=== PATIENT | male | born 1995 | race Caucasian/White ===

== ENCOUNTER 2021-10-18 17:09 | Outpatient (CLI) | payer OTHER ==
--- NOTE | 2021-10-19 09:14 | XRAY Report ---
PROCEDURE: Knee 2 View LT INDICATIONS: SPRAIN OF L KNEE TECHNIQUE: 2 views of the left knee(s) were acquired. COMPARISON: None. FINDINGS: Bones: No fractures or dislocations. No suspicious bony lesions. Soft tissues: There is small to moderate suprapatellar joint effusion. No suspicious soft tissue mj cifications. IMPRESSION: Small to moderate joint effusion. No acute fracture or dislocation. Reviewed by: Sridhar Curry MD on 10/19/2021 9:12 AM PDT Approved by: Sridhar Curry MD on 10/19/2021 9:12 AM PDT Station ID: [id number]
== END 2021-10-18 23:59 | disposition home or self-care (01) ==
LOC: DI.N 17:09
PROVIDERS: ATTEND Nurse Practitioner
DX: S83.92XA Sprain of unspecified site of left knee, initial encounter (principal); M25.462 Effusion, left knee

== ENCOUNTER 2022-06-18 12:29 | Outpatient (CLI) | payer OTHER ==
--- NOTE | 2022-06-18 17:35 | XRAY Report ---
PROCEDURE: Chest 2 View X-Ray INDICATIONS: WHEEZING TECHNIQUE: 2 views of the chest were acquired. COMPARISON: None. FINDINGS: Surgical changes and devices: None. Lungs and pleura: No pleural effusions or pneumothorax. Lungs are clear. Mediastinum: Mediastinal contours are normal. Heart size is normal. Bones and chest wall: No suspicious bony abnormalities. Soft tissues appear unremarkable. IMPRESSION: Clear lungs, without infiltrates. Reviewed by: Nate Cates MD on 06/18/2022 4:34 PM [facility] Approved by: Nate Cates MD on 06/18/2022 4:34 PM [facility] Station ID: [id number]
== END 2022-06-18 23:59 | disposition home or self-care (01) ==
LOC: DI.N 12:29
PROVIDERS: ATTEND Nurse Practitioner
DX: R06.2 Wheezing (principal)